=== PATIENT | male | born 1950 | race Caucasian/White ===

== ENCOUNTER 2016-04-08 06:38 | Inpatient (IN) | payer MEDICARE, OTHER ==
--- NOTE | 2016-04-02 15:32 | HP ---
HISTORY AND PHYSICAL: DATE OF OFFICE VISIT: 04/02/16 DATE OF ADMISSION/SURGERY: 04/08/16 SURGEON: Aye Molina MD PROCEDURE: Left total knee arthroplasty. HISTORY OF PRESENT ILLNESS: Mr. Leroy is a 66-year-old gentleman with complaints of left knee pain. He has failed conservative management and has elected to proceed with a left total knee arthroplasty, which is scheduled for 04/08/[address] Molina. PAST MEDICAL HISTORY: 1. High cholesterol. 2. Acid reflux. PAST SURGICAL HISTORY: 1. Right total knee arthroplasty. 2. Bilateral knee arthroscopies. 3. Bilateral shoulder arthroscopies. 4. Lumbar laminectomy. 5. Hernia repair. 6. Lump removal from his leg. 7. Appendectomy. 8. Bilateral carpal tunnel release. CURRENT MEDICATIONS: 1. Simvastatin. 2. Omeprazole. 3. Hydrocodone 10/325. ALLERGIES: To LIPITOR. FAMILY HISTORY: Cervical, colon, and prostate cancer. SOCIAL HISTORY: This is a 66-year-old gentleman. He is . He is retired. He does not smoke or use drugs. He uses occasional alcohol. REVIEW OF SYSTEMS: A complete 14-point review of systems was reviewed with the patient. All was negative or noncontributory. PHYSICAL EXAMINATION GENERAL: He is well developed, well nourished, in no acute distress. VITAL SIGNS: He stands 5 feet 6 inches tall, weighs 185 pounds, blood pressure is 121/68, and his heart rate is 55. HEENT: Normocephalic, atraumatic. NECK: Supple. No palpable lymph nodes. Trachea is midline. PULMONARY: The lung are clear to auscultation bilaterally. No wheezes, rhonchi , or rales. CARDIO: Regular rate and rhythm. Strong S1, S2. No murmurs, gallops, or rubs. No peripheral edema. ABDOMEN: Soft, nontender, and nondistended. NEUROLOGICAL: He is alert and oriented x3. Cranial nerves II through XII are intact. MUSCULOSKELETAL: Left lower extremity: The skin is intact. He has a moderate joint effusion and tenderness over the medial and lateral joint line. Full range of motion. His lower extremity muscle group strengths are intact at 5/5. He has intact sensation and 2+ dorsalis pedis pulses. ASSESSMENT AND PLAN: Mr. Leroy is a 66-year-old gentleman with complaints of left knee pain secondary to advanced osteoarthritis. He has failed conservative management and has elected to proceed with a left total knee arthroplasty, which is scheduled for 04/08/[address] Molina discussed the risks and benefits of the surgery at today's visit and all of his questions were answered. Coumadin and Percocet were sent to his pharmacy for post-operative pain control and DVT prophylaxis. Colace was also sent to prevent constipation. He will see Dr. Molina back in 10 to 14 days after the surgery. RINA WOOTEN [id number]/[facility] #: [id number] MTDMignon
[~2016-04-08 06:38] MED LIST: Buffered Lidocaine 1% SYRIN* 3 ML/SYR SYRINGE INTRADERM ONE
[2016-04-08] MEDS ORDERED: ceFAZolin 2 GM PREMIX(*) 2 GM/50 ML BAG IVPB ONE (07:13)
[2016-04-08] MEDS ORDERED: Midazolam* 1 MG/ML 5 ML VIAL (5 MG) ONE ×2 (08:58→10:14)
[2016-04-08] MEDS ORDERED: Bupivacaine 0.5% SDV PF* 30 ML VIAL ONE ×2 (08:58→09:32)
[2016-04-08] MEDS ORDERED: Morphine PF AMP (0.5MG/ML)* 5 MG/10 ML AMP ONE (09:43)
[2016-04-08] MEDS ORDERED: fentaNYL* 50 MCG/ML 2 ML VIAL (100 MCG VIAL) ONE (09:54)
[2016-04-08] MEDS ORDERED: Dexamethasone IV* 4 MG/ML 1 ML (4 MG) ONE (10:14)
[2016-04-08] MEDS ORDERED: Ondansetron INJ* 2 MG/ML VIAL IV PRN ×2 (10:35→11:10)
[2016-04-08] MEDS ORDERED: fentaNYL* 50 MCG/ML 2 ML VIAL (100 MCG VIAL) IV PRN (10:35)
[2016-04-08] MEDS ORDERED: HYDROcodone/ACETAMIN 5-325 MG* 1 TAB PO PRN ×2 (10:35→11:10)
[2016-04-08] MEDS ORDERED: HYDROmorphone* 1 MG/ML 1 ML SYR IV PRN (10:35)
[2016-04-08] MEDS ORDERED: DiMENhydriNATE IV* 50 MG/ML VIAL IV PUSH PRN ×2 (10:35→11:10)
[2016-04-08] MEDS ORDERED: oxyCODONE TAB* 5 MG TAB PO PRN (10:35)
[2016-04-08] MEDS ORDERED: diPHENhydraMINE IV* 50 MG/ML 1 ml VIAL (BENADRYL) IV PRN (11:10)
[2016-04-08] MEDS ORDERED: Naloxone* 2 MG in NS 0.9% 250 ML* 250 ML IV PRN (11:10)
[2016-04-08] MEDS ORDERED: Naloxone* 0.4 MG/ML 1 ML VIAL IV PRN (11:10)
[2016-04-08] MEDS ORDERED: Ketorolac INJ* 30 MG/ML 1 ML VIAL IV PRN (11:10)
[2016-04-08] MEDS ORDERED: oxyCODONE/Acetamin 5/325 MG* TAB PO PRN (11:10)
[2016-04-08] MEDS ORDERED: Ketorolac INJ* 30 MG/ML 1 ML VIAL ONE (11:14)
[2016-04-08] MEDS ORDERED: Acetaminophen TAB* 325 MG PO PRN (11:56)
[2016-04-08] MEDS ORDERED: LACTULOSE* 30 ML UDC PO PRN (12:00)
[2016-04-08] MEDS ORDERED: Polyethylene Glycol 3350* 17 GM PACKET PO PRN (12:00)
[2016-04-08] MEDS ORDERED: Bisacodyl SUPP* 10 MG SUPP PR PRN (12:00)
[2016-04-08] MEDS ORDERED: Magnesium Hydroxide LIQ* 30 ML UDC PO PRN (12:00)
--- NOTE | 2016-04-08 12:50 | RAD ---
Indication: Postop LEFT total knee replacement. Comparison: January 21, 2016 Technique: Portable AP and cross table lateral views LEFT knee. Report: Status post total knee replacement. Anterior surgical drain in place. Post-op fluid and gas is seen in the joint space and anterior subcutaneous tissues. Alignment is anatomic. No periprosthetic fracture evident. IMPRESSION: Normal post-op appearance following LEFT total knee replacement.
[2016-04-08] MEDS ORDERED: Warfarin TAB(*) 6 MG PO ONE (17:00)
[2016-04-08] MEDS: ceFAZolin 1 GM in Dextrose (*) 1 GM/50 ML BAG IVPB SCH (17:32)
[2016-04-08] MEDS: CMCS Simvastatin TAB(NF) 20 MG TAB PO SCH (18:40)
[2016-04-08] MEDS: Docusate CAP* 100 MG PO SCH (21:07)
[2016-04-09] MEDS: Morphine INJ* 4 MG/ML 1 ML SYRINGE IV PRN ×2 (00:14→02:09)
[2016-04-09] MEDS: ceFAZolin 1 GM in Dextrose (*) 1 GM/50 ML BAG IVPB SCH ×2 (00:41→08:35)
[2016-04-09] MEDS: oxyCODONE/Acetamin 5/325 MG* TAB PO PRN ×6 (01:40→23:26)
[2016-04-09] MEDS ORDERED: diPHENhydraMINE IV* 50 MG/ML 1 ml VIAL (BENADRYL) IV PRN (02:00)
[2016-04-09] MEDS ORDERED: Ondansetron TAB* 4 MG PO PRN (02:00)
[2016-04-09] MEDS ORDERED: oxyCODONE/Acetamin 5/325 MG* TAB PO PRN (02:00)
[2016-04-09] MEDS ORDERED: Ondansetron INJ* 2 MG/ML VIAL IV PRN (02:00)
[2016-04-09 07:08] LABS: Hematocrit 37 % (42-52); Hemoglobin 12.3 g/dl (14.0-18.0)
[2016-04-09 07:23] LABS: Calcium 8.8 mg/dL (8.6-10.3); EGFR African American 140.5 (>60); EGFR Non-African American 109.2 (>60); Potassium 3.8 mmol/L (3.5-5.0)
--- NOTE | 2016-04-09 07:51 | PN ---
Progress Note - Progress Note SOAP: Subjective: Pt. reports pain is controlled. Objective: LLE -- drain removed, tip intact with 200 cc ss drainage. distally mild swelling. +df/pf with full sens lt, 2+dp pulse. Vital Signs: Temp Pulse Resp BP Pulse Ox 99.2 F 68 18 134/70 97 04/09/16 04:38 04/09/16 04:38 04/09/16 05:48 04/09/16 04:38 04/09/16 04:38 Laboratory Results - last 24 hr 04/09/16 04/09/16 04/09/16 06:48 06:50 06:50 Hgb 12.3 L Hct 37 L INR (Anticoag Therapy) 1.00 Sodium 132 L Potassium 3.8 Chloride 101 Carbon Dioxide 26 Anion Gap 5 BUN 18 Creatinine 0.72 Est GFR ( Amer) 140.5 Est GFR (Non-Af Amer) 109.2 BUN/Creatinine Ratio 25.0 H Glucose 115 H Calcium 8.8 Assessment: 66 yo M pod 1 s/p LTKA Plan: wbat lle pt/ot xrays satisfactory lovenox in hospital, home on 325 mg ecasa bid. pt. declines coumadin plan home tomorrow with vns
[2016-04-09] MEDS: Docusate CAP* 100 MG PO SCH ×2 (08:35→21:36)
[2016-04-09] MEDS ORDERED: Omeprazole CAP* 20 MG PO SCH (09:00)
[2016-04-09] MEDS: Omeprazole CAP* 20 MG PO SCH (09:50)
[2016-04-09] MEDS: Enoxaparin(*) 30 MG/0.3 ML SYR SUBCUT SCH (12:06)
--- NOTE | 2016-04-09 12:27 | OP ---
DATE OF OPERATION: 04/08/16 - ROOM #349 DATE OF : 50 SURGEON: Aye Molina MD LICENSED PSYCHIATRIC TECHNICIAN: RINA Sebastian ANESTHESIOLOGIST: Dr. Reid. ANESTHESIA: Spinal with adductor nerve block. PRE-OP DIAGNOSIS: Severe end-stage degenerative osteoarthritis of the left knee joint. POST-OP DIAGNOSIS: Severe end-stage degenerative osteoarthritis of the left knee joint. OPERATIVE PROCEDURE: Left total knee arthroplasty. COMPLICATIONS: None. ESTIMATED BLOOD LOSS: 200 cc. TOURNIQUET TIME: 47 minutes. SPECIMENS: Bone and cartilage from the left knee joint, sent to pathology. HARDWARE USED: This was cemented [employer] total knee hardware. Two packages of Simplex bone cement. For the femur, a size 5 left posterior stabilized Legion Oxinium femoral component. For the tibia, a size 5 left tibial base plate. For the insert, a 13-mm posterior stabilized articular insert size 5/6. For the patella, a 35-mm 3-peg all-poly patella. BRIEF HISTORY/INDICATIONS: Mr. Leroy is a 66-year-old gentleman with years of increasingly severe left knee pain. He failed conservative treatment with antiinflammatories, pain medications, intraarticular injections, and physical therapy. Radiographs confirmed end-stage arthritis and he elected to undergo left total knee arthroplasty. Informed consent was obtained from the patient. He understood the risks of procedure included, but were not limited to bleeding , infection, damage to nearby structures, continued pain, need for further surgery, intraoperative fracture, nerve palsy, stiffness or loss of motion, hardware failure or loosening, stroke, heart attack, blood clot, and . He wished to proceed. INTRAOPERATIVE FINDINGS: Intraoperatively, the patient was noted to have full- thickness cartilage loss in the medial and patellofemoral compartments. DESCRIPTION OF PROCEDURE: Mr. Leroy was identified in the preanesthesia unit. His left lower extremity was marked as the correct operative side. Informed consent was signed and placed in the chart. The patient was taken to the operating room and placed under spinal anesthesia with adductor nerve block. Merino catheter was placed. Left lower extremity was prepped and draped in the usual sterile fashion. Preop time-out was made to correctly identify the patient 's side and site. Appropriate preoperative antibiotics were given within 1 hour of incision. Tourniquet was inflated and total tourniquet time for this procedure was 47 minutes. A 14 cm midline incision was made with the 10 blade and carried down to the extensor mechanism. A new 10 blade used to make a standard medial para- patellar arthrotomy. Patella was subluxed laterally. Two 1 cm diameter loose bodies were identified in the suprapatellar pouch and carefully removed. Electrocautery was used to subperiosteally elevate soft tissue off the superomedial tibia to the mid sagittal plane. A rongeur was used to remove the medial tibial plateau osteophytes. The knee was flexed up. The anterior horn of the lateral meniscus and the ACL was sharply released. A drill was used to enter the distal femur. Intramedullary distal femoral cutting guide was placed and pinned into proper position along the distal femur. Some lateral femoral hypoplasia was noted. Distal femoral cut was made with an Oscillating saw. Next , the external rotational guide was placed on the distal femur and pinned into proper position. The distal femur was sized to a size 5. Size 5 multi-cutting jig was pinned into distal femur. The oscillating saw was used to make the appropriate 4 chamfer cuts. Next, the PCL was completely released. Extramedullary tibial cutting guide was pinned into position on the proximal tibia. The oscillating saw was used to make the appropriate proximal tibial cut. The proximal tibial bone was carefully removed. The knee was brought out into full extension. A spacer block had good fit with full extension. Medial and lateral ligamentous balancing was satisfactory. Flexion and extension gaps were well balanced. The knee was flexed up. The lamina siderographist was placed both medially and laterally. Any remaining meniscus was carefully removed with electrocautery. Posterior osteophytes were removed using a curved osteotome. Tibial tray and drop glen confirmed satisfactory tibial cut. A size 5 left femoral trial was chosen and impacted on to the distal femur. This trial had excellent fit and stability. The box for the posterior stabilized implant was prepared using a reamer and box cut osteotome. A size 5 tibial tray trial and a 11 mm insert trial were placed. The knee was taken through range of motion and noted to have full extension to 130 degrees of flexion with good patellofemoral tracking. The patella was everted. A 9 mm of patellar bone and cartilage were carefully removed using an oscillating saw. The patella was sized to a size 35. The 3 pegs were drilled through the size 35 guide. A 35 trial patella was placed and the knee was taken through range of motion. There was good patellofemoral tracking. All trials were carefully removed. The tibia was subluxed anteriorly and sized to a size 5. Proximal tibia was prepared using a keel punch. All bony cut surfaces were copiously irrigated with sterile saline and dried. Final implants were cemented into place, starting with the tibia, followed by the femur, and lastly the patella. A 13-mm insert trial was chosen and placed while the knee was brought out to full extension. Tourniquet was turned down at 47 minutes. Once the cement was fully cured, the insert trial was removed. Any excess cement was carefully removed. Electrocautery was used to obtain meticulous hemostasis. A 13 mm posterior stabilized insert was chosen as final insert. This was locked into position on the tibial tray. Stability of the insert was checked and rechecked and noted to be stable. Final range of motion with full extension to 130 degrees of flexion with good patellofemoral tracking. The knee was copiously irrigated with sterile saline. The extensor mechanism was closed over a median Hemovac drain using interrupted #1 Vicryls. The rest of the incision was closed in a layered fashion using 0 and 2-0 Vicryls. Skin was closed using running 3-0 nylon suture. Sterile, Xeroform, 4x4s, and Webril were used to cover the incision. Ramy wrap and cold pack were placed over this. The patient's anesthesia was reversed without difficulty. He was taken to the PACU in stable condition. Intended weightbearing will be weightbearing as tolerated. Intended DVT prophylaxis will be Coumadin with a Lovenox bridge. [id number]/[facility] #: [id number] [facility]ITALMignon
[2016-04-09] MEDS: CMCS Simvastatin TAB(NF) 20 MG TAB PO SCH (17:39)
[2016-04-10] MEDS: oxyCODONE TAB* 5 MG TAB PO PRN ×2 (01:52→07:12)
[2016-04-10] MEDS: oxyCODONE/Acetamin 5/325 MG* TAB PO PRN ×2 (04:26→09:34)
[2016-04-10] MEDS: Omeprazole CAP* 20 MG PO SCH (07:12)
[2016-04-10 07:28] LABS: Hematocrit 35 % (42-52); Mean Platelet Volume 10 um3 (7.4-10.4)
[2016-04-10 08:05] VITALS: BP 126/73
--- NOTE | 2016-04-10 08:15 | PN ---
Progress Note - Progress Note SOAP: Subjective: Pt. is alert, pain controlled. Wants to go home after AM PT. Objective: LLE - dressing changed, inc c/d/i. distally mod swelling. nvi. Vital Signs: Temp Pulse Resp BP Pulse Ox 97.8 F 69 16 126/73 98 04/10/16 07:14 04/10/16 07:14 04/10/16 07:14 04/10/16 07:14 04/10/16 07:14 Laboratory Results - last 24 hr 04/10/16 04/10/16 06:54 06:54 Hgb 12.0 L Hct 35 L Plt Count 143 L MPV 10 INR (Anticoag Therapy) 1.03 Assessment: 66 yo M pod 2 s/p LTKA Plan: wbat lle pt/ot lovenox today, home on ecasa 325 bid plan d/c to home today with vns
[2016-04-10] MEDS: Docusate CAP* 100 MG PO SCH (08:33)
[2016-04-10] MEDS: Enoxaparin(*) 30 MG/0.3 ML SYR SUBCUT SCH (10:52)
--- NOTE | 2016-04-10 14:18 | DS ---
DISCHARGE SUMMARY: DATE OF ADMISSION: 04/08/16 DATE OF DISCHARGE: 04/10/16 ATTENDING PHYSICIAN: Aye Molina MD ADMISSION DIAGNOSIS: Degenerative arthritis, left knee. DISCHARGE DIAGNOSIS: Degenerative arthritis, left knee. PROCEDURES PERFORMED: Left total knee arthroplasty. HOSPITAL COURSE: The patient is a 66-year-old male with ongoing complaints of severe left knee pain . He failed conservative management including corticosteroid injections and physical therapy. He e lected to proceed with surgical intervention and was taken to the operating room under the care of Mignon Molina on 04/08/16 for the aforementioned procedure. He tolerated the procedure well and left the operating room in stable condition. Postoperatively, he progressed satisfactorily with the physica l therapy and occupational therapy goals bearing weight as tolerated on the left lower extremity. Deloris suárez had no postoperative complications and mastered his physical therapy goals and was found to be sta ble orthopedically and medically for discharge to home on the date of 04/10/16. CONDITION ON DISCHARGE: The patient is alert and oriented x3. He is in no acute distress. His lef t knee incision is benign without redness or drainage. His calf is soft and nontender. His neurova scular status is grossly intact. PLAN: The patient will be discharged to home. He will continue with outpatient physical therapy, r pedro of motion exercises, and strengthening as tolerated. He will be on Ecotrin 325 mg tablets p.o. b.i.d. for DVT prophylaxis as the patient declines Coumadin therapy. He will resume his regular ho me medications and will follow up in the office with Dr. Molina in roughly 10 to 14 days. He will ca ll the office if there is any noted increased pain, redness, drainage, calf pain or swelling, fever, or chills. RINA DUNN [id number]/[facility] #: [id number]
== END 2016-04-10 11:20 | disposition home health service (06) | DRG 470 ==
LOC: AA 06:38 → SSU 11:56
PROVIDERS: ADMIT Orthopaedic Surgery Adult Reconstructive Orthopaedic Surgery; ATTEND Orthopaedic Surgery Adult Reconstructive Orthopaedic Surgery
PROC: 0SRD0J9 Replacement of Left Knee Joint with Synthetic Substitute, Cemented, Open Approach (ICD-10-PCS; principal; 2016-04-08 09:00)
DX: M17.12 Unilateral primary osteoarthritis, left knee (principal); K21.9 Gastro-esophageal reflux disease without esophagitis; E78.00 Pure hypercholesterolemia, unspecified; Z96.651 Presence of right artificial knee joint; Z88.8 Allergy status to other drugs, medicaments and biological substances; Z80.0 Family history of malignant neoplasm of digestive organs; Z80.42 Family history of malignant neoplasm of prostate; Z80.8 Family history of malignant neoplasm of other organs or systems; Z72.89 Other problems related to lifestyle; Z79.82 Long term (current) use of aspirin
CPT/HCPCS: 36415; 80048; 85014; 85018; 85049; 85610; 88305; 88311; 94760; A9270-GY; C1776; J0690; J1100; J1650; J1885; J2250; J2270; J3010

== ENCOUNTER → 2016-06-21 15:47 | Emergency (ER) | payer MEDICARE, OTHER ==
[~2016-06-21 15:47] MED LIST changes: -Buffered Lidocaine 1% SYRIN* 3 ML/SYR SYRINGE INTRADERM ONE; +Iohexol 350* (CONTRAST) 500 ML MDV IV ONE; +LORazepam TAB(*) 1 MG PO ONE
[2016-06-21 17:34] LABS: Hematocrit 42 % (42-52); Hemoglobin 13.8 g/dl (14.0-18.0); Mean Corpuscular HGB Conc 33 g/dl (31-36); Mean Corpuscular Hemoglobin 29 pg (27-31); Mean Corpuscular Volume 89 fL (80-94); Mean Platelet Volume 10 um3 (7.4-10.4); Red Blood Count 4.71 10^6/ul (4.0-5.4); Red Cell Distribution Width 14 % (10.5-15); White Blood Count 7.6 10^3/ul (3.5-10.8)
[2016-06-21 17:46] LABS: Albumin 4.4 g/dL (3.2-5.2); BUN/Creatinine Ratio 19.8 (8-20); Calcium 9.8 mg/dL (8.6-10.3); EGFR African American 122.6 (>60); EGFR Non-African American 95.3 (>60); Potassium 4.3 mmol/L (3.5-5.0); Total Bilirubin 0.3 mg/dL (0.2-1.0); Total Protein 7.4 g/dL (6.4-8.9)
[2016-06-21 18:08] LABS: C Reactive Protein 2.4 mg/L (< 5.00)
--- NOTE | 2016-06-21 18:28 | RAD ---
INDICATION: Shortness of breath. COMPARISON: Comparison is made with a prior chest x-ray study from April 02, 2016. TECHNIQUE: A CT angiogram of the chest was performed with intravenous following intravenous injection of 74 ml of Omnipaque 350 nonionic contrast. Contiguous axial sections were obtained from the lung apices through the lung bases. Images were reconstructed in the coronal and sagittal planes. FINDINGS: There is relatively homogeneous opacification of the pulmonary arteries. No intraluminal filling defect or pulmonary embolism is seen. The heart appears mildly enlarged. No pericardial effusion is present. The thoracic aorta is normal in caliber. No significant enlarged mediastinal or hilar lymph nodes are seen. The lungs are clear. No pleural effusion is seen. Images of the upper abdomen demonstrate small bilateral 1 to 2 mm size renal calculi. No hydronephrosis is seen. No significant focal osseous abnormality is seen. IMPRESSION: 1. NO EVIDENCE FOR PULMONARY EMBOLISM. 2. SMALL BILATERAL NONOBSTRUCTING RENAL CALCULI.
[2016-06-21 21:07] VITALS: BP 82/20
--- NOTE | 2016-06-21 22:00 | ED ---
Chapis Orosco Matthew, scribed for Melchor Reilly MD on 06/21/16 at 1724 . Shortness of Breath - HPI Summary HPI Summary: A 66 y/o male presents to the ED with intermittent SOB for the past month that has worsened in the past week. He has the episodes 3-4 times per day. He states that he's unable to catch his breath and wakes-up in a panic. He only sleeps 3 hours a night. Associated symptoms include chest tightness and diaphoresis. His SOB worsens lying down and improves when standing. He has a knee replacement 10 weeks ago. The patient also currently has an abscess tooth and is taking amoxicillin. He is not on a blood thinner. - History of Current Complaint Chief Complaint: EDShortnessOfBreath Time Seen by Provider: 06/21/16 17:06 Hx Obtained From: Patient Onset/Duration: Lasting Weeks, Still Present Timing: Intermittent Episodes Lasting: Current Severity: Moderate Dyspnea At: Rest Aggrevating Factors: Recumbent Position Alleviating Factors: Upright Position Associated Signs & Symptoms: Chest Pain Unrelated to Cough - described as tightness, Diaphoresis - Allergy/Home Medications Allergies/Adverse Reactions: Allergies Allergy/AdvReac Type Severity Reaction Status Date / Time Atorvastatin [From Lipitor] Allergy ambulation Verified 04/08/16 07:47 difficulty PMH/Surg Hx/FS Hx/Imm Hx Endocrine/Hematology History: Denies: Hx Diabetes Cardiovascular History: Denies: Hx Hypertension, Hx Pacemaker/ICD GI History: Reports: Hx Gastroesophageal Reflux Disease, Hx Hiatal Hernia History: Denies: Hx Dialysis, Hx Renal Disease Musculoskeletal History: Reports: Hx Arthritis, Other Musculoskeletal History - SPINAL STENOSIS Sensory History: Reports: Hx Contacts or Glasses - GLASSES Denies: Hx Hearing Aid Opthamlomology History: Reports: Hx Contacts or Glasses - GLASSES Psychiatric History: Denies: Hx Panic Disorder - Surgical History Surgery Procedure, Year, and Place: 2009 LSP SURGERY. LT SHOULDER ROTATOR CUFF SURGERY. RT LEG FATTY TUMOR REMOVED. HERNIA Hx Anesthesia Reactions: No Infectious Disease History: Denies: Hx Shingles - vaccine 2014, Traveled Outside the [place] in Last 30 Days - Family History Family History: No FHx of malignant hyperthermia. No FHx of anesthesia reaction - Social History Alcohol Use: Weekly Alcohol Amount: 2-3/WEEK Substance Use Type: Reports: None Smoking Status (MU): Never Smoked Tobacco Review of Systems Positive: Skin Diaphoresis Eyes: Negative ENT: Negative Positive: Chest Pain - described as tightness Positive: Shortness Of Breath Gastrointestinal: Negative Genitourinary: Negative Musculoskeletal: Negative Skin: Negative Neurological: Negative Psychological: Normal All Other Systems Reviewed And Are Negative: Yes Physical Exam Triage Information Reviewed: Yes Vital Signs On Initial Exam: Initial Vitals Temp Pulse Resp BP Pulse Ox 97.6 F 52 22 134/83 100 06/21/16 15:49 06/21/16 15:49 06/21/16 15:49 06/21/16 15:49 06/21/16 15:49 Vital Signs Reviewed: Yes Appearance: Positive: No Pain Distress Skin: Positive: Warm, Skin Color Reflects Adequate Perfusion, Dry Head/Face: Positive: Normal Head/Face Inspection Eyes: Positive: Normal ENT: Positive: Normal ENT inspection Neck: Positive: Supple, Nontender Respiratory/Lung Sounds: Positive: Clear to Auscultation, Breath Sounds Present Cardiovascular: Positive: RRR Abdomen Description: Positive: Nontender, Soft Bowel Sounds: Positive: Present Musculoskeletal: Positive: Strength/ROM Intact Neurological: Positive: Normal, Alert, Oriented to Person Place, Time Psychiatric: Positive: Affect/Mood Appropriate Diagnostics - Vital Signs Vital Signs Temp Pulse Resp BP Pulse Ox 06/21/16 15:49 97.6 F 52 22 134/83 100 - Laboratory Lab Results: Lab Results 06/21/16 06/21/16 06/21/16 Range/Units 16:25 16:25 16:25 WBC 7.6 (3.5-10.8) 10^3/ul RBC 4.71 (4.0-5.4) 10^6/ul Hgb 13.8 L (14.0-18.0) g/dl Hct 42 (42-52) % MCV 89 (80-94) fL MCH 29 (27-31) pg MCHC 33 (31-36) g/dl RDW 14 (10.5-15) % Plt Count 198 (150-450) 10^3/ul MPV 10 (7.4-10.4) um3 Neut % (Auto) 50.3 (38-83) % Lymph % (Auto) 35.9 (25-47) % [place] % (Auto) 11.0 H (1-9) % Eos % (Auto) 2.6 (0-6) % Baso % (Auto) 0.2 (0-2) % Absolute Neuts (auto) 3.8 (1.5-7.7) 10^3/ul Absolute Lymphs (auto) 2.7 (1.0-4.8) 10^3/ul Absolute Monos (auto) 0.8 (0-0.8) 10^3/ul Absolute Eos (auto) 0.2 (0-0.6) 10^3/ul Absolute Basos (auto) 0 (0-0.2) 10^3/ul Absolute Nucleated RBC 0 10^3/ul Nucleated RBC % 0 Sodium 135 (133-145) mmol/L Potassium 4.3 (3.5-5.0) mmol/L Chloride 101 (101-111) mmol/L Carbon Dioxide 29 (22-32) mmol/L Anion Gap 5 (2-11) mmol/L BUN 16 (6-24) mg/dL Creatinine 0.81 (0.67-1.17) mg/dL Est GFR ( Amer) 122.6 (>60) Est GFR (Non-Af Amer) 95.3 (>60) BUN/Creatinine Ratio 19.8 (8-20) Glucose 106 H (70-100) mg/dL Lactic Acid 1.2 (0.5-2.0) mmol/L Calcium 9.8 (8.6-10.3) mg/dL Total Bilirubin 0.30 (0.2-1.0) mg/dL AST 17 (13-39) U/L ALT 18 (7-52) U/L Alkaline Phosphatase 49 (34-104) U/L Troponin I 0.00 (<0.04) ng/mL C-Reactive Protein 2.40 (< 5.00) mg/L B-Natriuretic Peptide ( - 100) pg/mL Total Protein 7.4 (6.4-8.9) g/dL Albumin 4.4 (3.2-5.2) g/dL Globulin 3.0 (2-4) g/dL Albumin/Globulin Ratio 1.5 (1-3) 05//17 Range/Units 16:25 WBC (3.5-10.8) 10^3/ul RBC (4.0-5.4) 10^6/ul Hgb (14.0-18.0) g/dl Hct (42-52) % MCV (80-94) fL MCH (27-31) pg MCHC (31-36) g/dl RDW (10.5-15) % Plt Count (150-450) 10^3/ul MPV (7.4-10.4) um3 Neut % (Auto) (38-83) % Lymph % (Auto) (25-47) % [place] % (Auto) (1-9) % Eos % (Auto) (0-6) % Baso % (Auto) (0-2) % Absolute Neuts (auto) (1.5-7.7) 10^3/ul Absolute Lymphs (auto) (1.0-4.8) 10^3/ul Absolute Monos (auto) (0-0.8) 10^3/ul Absolute Eos (auto) (0-0.6) 10^3/ul Absolute Basos (auto) (0-0.2) 10^3/ul Absolute Nucleated RBC 10^3/ul Nucleated RBC % Sodium (133-145) mmol/L Potassium (3.5-5.0) mmol/L Chloride (101-111) mmol/L Carbon Dioxide (22-32) mmol/L Anion Gap (2-11) mmol/L BUN (6-24) mg/dL Creatinine (0.67-1.17) mg/dL Est GFR ( Amer) (>60) Est GFR (Non-Af Amer) (>60) BUN/Creatinine Ratio (8-20) Glucose (70-100) mg/dL Lactic Acid (0.5-2.0) mmol/L Calcium (8.6-10.3) mg/dL Total Bilirubin (0.2-1.0) mg/dL AST (13-39) U/L ALT (7-52) U/L Alkaline Phosphatase (34-104) U/L Troponin I (<0.04) ng/mL C-Reactive Protein (< 5.00) mg/L B-Natriuretic Peptide 25 ( - 100) pg/mL Total Protein (6.4-8.9) g/dL Albumin (3.2-5.2) g/dL Globulin (2-4) g/dL Albumin/Globulin Ratio (1-3) Result Diagrams: 06/21/16 16:25 06/21/16 16:25 Lab Statement: Any lab studies that have been ordered have been reviewed, and results considered in the medical decision making process. - CT CTA Chest CT Interpretation: Positive (See Comments) - IMPRESSION: 1. NO EVIDENCE FOR PULMONARY EMBOLISM. 2. SMALL BILATERAL NONOBSTRUCTING RENAL CALCULI. CT Interpretation Completed By: Radiologist - EKG 15:55 Cardiac Rate: Bradycardia - 53 bpm EKG Rhythm: Sinus Bradycardia Course/Dx - Course Course Of Treatment: Mr. Gonzalez presented C/O sob especially when lying down for many weeks getting gradually worse. He had been sleeping only about 3 hours a night. He was W/U'd for SOB including CTA as he had knee surgery 9 weeks ago and his W/U was negative. He seemed anxious here and this may be the source. I recommended that he try ativan for a couple nights and if it helps, he can F/U with Dr. Fabian with a consideration for a more appropriate long toerm medication. - Diagnoses Provider Diagnoses: Dyspnea Discharge - Discharge Plan Condition: Stable Disposition: HOME Patient Education Materials: Dyspnea (ED) Referrals: Kathryn Fabian MD [Primary Care Provider] - 2 Days Additional Instructions: Please follow-up with your primary care physician in 2 days. The documentation as recorded by the Chapis ponce Matthew accurately reflects the service I personally performed and the decisions made by me, Melchor Reilly MD.
== END | disposition home or self-care (01) ==
LOC: ED 15:47
DX: R06.00 Dyspnea, unspecified (principal); R07.9 Chest pain, unspecified; R05 Cough
CPT/HCPCS: 36415; 71275; 80053; 83605; 83880; 84484; 85025; 86140; 93005; 99283; A9270-GY; Q9967

== ENCOUNTER 2017-04-08 09:51 | Day surgery (SDC) | payer MEDICARE, OTHER ==
[~2017-04-08 09:51] MED LIST changes: +Buffered Lidocaine 0.9% SYRIN* 5 ML/SYR SYRINGE INTRADERM ONE; +Dexamethasone IV* 4 MG/ML 1 ML (4 MG) IV SLOW PU ONE; +Famotidine IV* 10 MG/ML 2 ML (20 mg) IV ONE; -Iohexol 350* (CONTRAST) 500 ML MDV IV ONE; -LORazepam TAB(*) 1 MG PO ONE
[2017-04-08] MEDS ORDERED: Dexamethasone IV* 4 MG/ML 1 ML (4 MG) ONE (09:53)
[2017-04-08] MEDS ORDERED: Famotidine IV* 10 MG/ML 2 ML (20 mg) ONE (09:53)
[2017-04-08] MEDS ORDERED: ceFAZolin 2 GM in 100 MLS NS (*) BAG IVPB ONE (10:50)
[2017-04-08] MEDS ORDERED: Bupivacaine 0.25% SDV* 30 ML ONE (10:56)
[2017-04-08] MEDS ORDERED: fentaNYL* 50 MCG/ML 2 ML VIAL (100 MCG VIAL) ONE ×2 (11:11→13:53)
[2017-04-08] MEDS ORDERED: Ondansetron INJ* 2 MG/ML VIAL ONE (11:12)
[2017-04-08] MEDS ORDERED: Propofol* 10 MG/ML 20 ML BTL IV PUSH ONE (11:12)
[2017-04-08] MEDS ORDERED: Midazolam* 1 MG/ML 10 ML VIAL (10 MG) ONE (11:12)
[2017-04-08] MEDS ORDERED: ROPIVACAINE 5 MG/ML 30 ML BTL (0.5%) ONE (11:35)
[2017-04-08] MEDS ORDERED: Glycopyrrolate IV* 0.2 MG/ML 1 ML VIAL ONE (12:01)
[2017-04-08] MEDS ORDERED: Atropine 1MG/ML INJ* 1 ML VIAL ONE (12:55)
[2017-04-08] MEDS ORDERED: DiMENhydriNATE IV* 50 MG/ML VIAL IV PUSH PRN (13:16)
[2017-04-08] MEDS ORDERED: Naloxone* 0.4 MG/ML 1 ML VIAL IV PRN (13:16)
[2017-04-08] MEDS ORDERED: fentaNYL* 50 MCG/ML 2 ML VIAL (100 MCG VIAL) IV PRN (13:16)
[2017-04-08] MEDS ORDERED: oxyCODONE/Acetamin 5/325 MG* TAB PO PRN (13:16)
[2017-04-08] MEDS ORDERED: HYDROmorphone INJ* 1 MG/ML CARPUJECT SYRINGE IV PRN (13:16)
[2017-04-08] MEDS ORDERED: Ondansetron INJ* 2 MG/ML VIAL IV PRN (13:16)
[2017-04-08 15:28] VITALS: BP 127/86
--- NOTE | 2017-04-11 11:01 | OP ---
CC: PCP OPERATIVE REPORT: DATE OF OPERATION: 04/08/17 DATE OF : 50 ATTENDING SURGEON: Rupal Gilman MD. EVS MANAGER: RINA Siddiqui. An school health assistant was needed for the entirety of the case to help with positioning and retraction, and was utilized throughout all portions of the case. ANESTHESIOLOGIST: Dr. Williamson. ANESTHESIA: General with interscalene block. PRE-OP DIAGNOSIS: Right shoulder partial thickness tear of the rotator cuff with bicipital tendonitis, SLAP tear, and AC joint arthritis. POST-OP DIAGNOSIS: OPERATIVE PROCEDURE: 1. Right shoulder arthroscopy with extensive glenohumeral debridement including chondroplasty and debridement of subscapularis. 2. Subacromial decompression with acromioplasty. 3. Rotator cuff repair of supraspinatus in a double-row fashion. 4. Open subpectoral biceps tenodesis. 5. Open distal clavicle excision. COMPLICATIONS: None. ESTIMATED BLOOD LOSS: Minimal. INDICATIONS: Titi Leroy is a 67-year-old male who has had pain in his shoulder since October when he felt a pop in his shoulder. He has had a lot of pain. He has failed conservative management. His MRI demonstrated bicipital tendonitis with subluxation, with a small partial tear in the subscapularis as well as high-grade partial thickness tearing of the supraspinatus, as well as AC joint arthritis. Risks and benefits of surgery were discussed at length to include, but are not limited to, bleeding, infection , damage to nerves, vessels, surrounding structures, wound nonhealing, persistent pain, need for further surgery, scarring, risk of failure, risk of DVT, and risk of anesthesia. He has failed conservative management including extensive physical therapy and injections. He has elected to proceed with surgical treatment. DESCRIPTION OF PROCEDURE: The patient was greeted in the preoperative area by the attending surgeon. Correct extremity was marked and the consent was confirmed. The patient then underwent interscalene nerve block by the anesthesiologist after which he was brought back to the operating suite where he was placed in supine position on the operating table. He then underwent general anesthesia with endotracheal intubation after which he was placed in left lateral decubitus position, with all bony prominences padded. He was secured with the pegboard. Axillary roll was placed. The right arm was draped unsterile with 10 pounds of traction. The right shoulder was prepped and draped in usual sterile fashion using chlorhexidine soap scrub and alcohol wipe , and a final prep with ChloraPrep. After appropriate surgical pause indicating side, site, procedure, administration of antibiotics, a posterolateral portal was made sharply with an 11 blade. The scope was introduced into the joint and the joint was examined. There were grade 2 to 3 changes with unstable flaps in the glenohumeral joint. The anterior, posterior, superior labrum had obvious tearing , superior labrum was detached. The biceps had significant tendonitis and tendinopathy, with tearing and fraying, and it was subluxed. The anterior portal was made in an outside-in fashion. A shaver was used to debride back the anterior, posterior, and superior labrum, to debride the unstable flaps and the chondrosis. The biceps was then tenotomized and it was very thick at its insertion site. The undersurface of the subscapularis was identified and there was a small tear, approximately 5% to may be 10% of the tear, which was debrided back using a shaver. The undersurface of the supraspinatus was identified and had a partial thickness tearing and looked to be a moderate grade. This was debrided back using a shaver. It was also marked using an 0 PDS suture to identify on the subacromial side if there was concomitant tearing visible. The scope was then repositioned in the subacromial space. The lateral port was made in an outside-in fashion. There was abundant bursitis present that was debrided back using a shaver. Electrocautery was used to skeletonize the undersurface of the acromion. The oval marques was then used to do an acromioplasty of the anterolateral spur, which was found to be moderate. Once this was done, attention was directed to the cuff, which was then carefully probed. There was evidence of partial thickness tearing of the bursal side and a decision was made to do a repair. The electrocautery device was used to skeletonize the greater tuberosity at the portion of the tear. The greater tuberosity was prepared using a shaver, a rasp, and then a marques to gently decorticate the greater tuberosity. Once this was done, the rotator cuff was debrided back as well, one anchor was placed in the medial row with excellent purchase. The awl was then used to do a small microfracture of the rest of the greater tuberosity to allow for other points of fixation and healing. Sutures were then passed through the tendon in a horizontal mattress configuration, then tied down using arthroscopic knot tying. It was then passed through a lateral anchor, the MultiFix anchor, into a lateral row for extra fixation. This helped to compress and restore the cuff to normal anatomy. AC joint was visualized, but the decision was made previously to do an open distal clavicle excision because of his small extra os that was superior. Final images were obtained. The wounds were copiously irrigated. Attention was directed to the distal clavicle. A 15-blade was used to make a saber incision over the distal clavicle and the soft tissues were carefully dissected to expose the AC joint capsule. The fascia was then incised longitudinally in line with the joints for later flap closure. The extra os was identified and then carefully scalloped out and removed that was above the AC joint. That was removed and then the ends of the distal clavicle were carefully exposed. A ruler was used to identify and dano to allow for 1 cm resection. The sagittal saw then used to make the cut. Once it was done, the osteotome was used to release it. Soft tissues were carefully removed to preserve the AC ligaments, which were safely protected 1.5 cm more medially. The piece of bone was then carefully removed and there was no evidence of further compression. The wound was copiously irrigated with sterile saline. The capsule and fascia were closed with 0 Vicryl. The subcutaneous skin was closed with 2-0 Vicryl and the skin was closed with nylon. Attention was directed to the biceps. The bed was air-planed to the right side. The anterior aspect of the shoulder was prepped again using ChloraPrep. A 15-blade was used to make an incision in line with the biceps tendon, continuing to inferior 2/3rd of the pec tendon. The bicipital groove was palpated. The biceps was then removed. This was a very large tendon with tendinopathy and tendonitis. The biceps was then brought through the groove and was found to have abundant synovitis and tendonitis and tendinopathy, very thick diseased tendon. The groove was then prepared in usual fashion with electrocautery device, the osteotome, the rasp to allow for good bony bleeding bed. The Q-Fix anchor drill guide was then placed and drilled unicortically. The Q-Fix was deployed with excellent purchase. Sutures were passed through the tendon approximately 1 cm proximal to the musculotendinous junction. The excess stump was excised. The biceps was shoveled back into the wound and tied down. The wounds were copiously irrigated with sterile saline and portals were closed with 3-0 nylon. The AC saber incision was closed with nylon. The anterior wound was closed in layers with 2-0 Vicryl and 3-0 Monocryl. Sterile dressing was applied. The anterior wound was injected with 0.25% Marcaine plain. Sterile dressings were applied. Cryo/Cuff and UltraSling were applied. He was awoken from anesthesia and transferred to PACU in stable condition. POSTOPERATIVE PLAN: He will be discharged on pain medication and antibiotics. He will be nonweightbearing. He will be in a sling for 6 weeks. DVT prophylaxis was considered, but deferred due to no previous personal or family history. I will see the patient back in 10 to 14 days. [id number]/[facility] #: [id number] [facility] HOSPITALMignon
== END 2017-04-08 15:50 | disposition home or self-care (01) ==
LOC: OR 09:51
PROVIDERS: ATTEND Orthopaedic Surgery
DX: S46.011A Strain of muscle(s) and tendon(s) of the rotator cuff of right shoulder, initial encounter (principal); M75.21 Bicipital tendinitis, right shoulder; S43.491A Other sprain of right shoulder joint, initial encounter; M75.41 Impingement syndrome of right shoulder; M19.011 Primary osteoarthritis, right shoulder; X50.0XXA Overexertion from strenuous movement or load, initial encounter; Y92.89 Other specified places as the place of occurrence of the external cause; E78.5 Hyperlipidemia, unspecified; G25.81 Restless legs syndrome; N40.0 Benign prostatic hyperplasia without lower urinary tract symptoms; G89.18 Other acute postprocedural pain
CPT/HCPCS: C1713; C1776; J0461; J1100; J2250; J2405; J2704; J2795; J3010